=== PATIENT | female | born 1995 | race African-American/Black ===

== ENCOUNTER 2016-09-08 13:45 | Emergency (ER) | payer OTHER ==
[2016-09-08 14:51] LABS: BASOPHILS 0.3 %; BASOPHILS ABSOLUTE 0.02 10/3/uL (0.0-0.16); EOSINOPHILS 1.1 %; EOSINOPHILS ABSOLUTE 0.08 10/3/uL (0.0-0.53); ER CBC TAT 0 Hrs 11 Mins; HEMATOCRIT 33.7 % (36.0-48.0); HEMOGLOBIN 10.5 g/dL (12.0-16.0); IMMATURE GRANULOCYTES 0.3 %; IMMATURE GRANULOCYTES ABSOLUTE 0.02 10/3/uL (0.0-0.11); LYMPHOCYTES 20.9 %; LYMPHOCYTES ABSOLUTE 1.46 10/3/uL (0.67-4.30); MEAN CORPUS HGB CONC 31.2 g/dL (32.0-36.0); MEAN CORPUSCULAR HEMOGLOB 21.6 pg (26.0-34.0); MEAN CORPUSCULAR VOLUME 69.3 fL (80-100); MEAN PLATELET VOLUME 9.8 fL (9.2-13.0); MONOCYTES 6.6 %; MONOCYTES ABSOLUTE 0.46 10/3/uL (0.21-1.20); NEUTROPHILS 70.8 %; NEUTROPHILS ABSOLUTE 4.96 10/3/uL (2.02-8.40); PLATELET COUNT 395 10/3/uL (150-400); RBC DISTRIBUTION WIDTH 18.6 % (12.0-16.0); RED CELL COUNT 4.86 10/6/uL (4.0-5.6)
[2016-09-08 14:55] LABS: MANUAL DIFF NO %
[2016-09-08 15:05] LABS: A/G RATIO 0.7 (0.7-1.9); ALBUMIN 3.7 G/DL (3.5-5.0); ALKALINE PHOSPHATASE 81 U/L (45-117); BUN (BLOOD UREA NITROGEN) 9 MG/DL (6-23); CALCIUM, SERUM 9.3 MG/DL (8.5-10.4); CHLORIDE, SERUM 105 MMOL/L (96-112); CO2 (CARBON DIOXIDE) 27 MMOL/L (24-34); CREATININE 0.89 MG/DL (0.55-1.02); GFR AFRICAN AMERICAN 107 ML/MIN (>=60); GFR NON AFRICAN AMERICAN 92 ML/MIN (>=60); GLOBULIN 5.2 G/DL (2.5-4.1); GLUCOSE, SERUM 100 MG/DL (60-99); POTASSIUM, SERUM 3.3 MMOL/L (3.5-5.3); SGOT(AST) 21 U/L (5-40); SGPT(ALT) 28 U/L (5-65); SODIUM, SERUM 140 MMOL/L (135-148); TOTAL BILIRUBIN 0.7 MG/DL (0-1.2); TOTAL PROTEIN 8.9 G/DL (6.0-8.5)
[2016-09-08 15:16] LABS: PLATELET ESTIMATE ADQ (ADEQUATE)
[2016-09-08 15:19] LABS: ASCORBIC ACID (UR NOT ORDER) NEG (NEG); BILIRUBIN, URINE NEGATIVE (NEG); KETONE, URINE NEGATIVE (NEG); LEUKOCYTE ESTERASE(NOT OR LARGE (NEG); NITRITE (URINE) NEG (NEG); WBC (NOT ORDERED) (RFLEX) 3 (0-5)
[2016-09-08 15:20] LABS: ER URINALYSIS TAT 0 Hrs 39 Mins
[2016-09-08 15:24] LABS: ANISOCYTOSIS 1+ (5-10/OIF) (0-5/OIF); HYPOCHROMIA 1+ (3-10/OIF) (0-2/OIF)
== END 2016-09-08 18:37 | disposition home or self-care (01) ==
LOC: ER 13:45
PROVIDERS: Physician Assistant Medical
DX: R10.9 Unspecified abdominal pain (principal); R11.10 Vomiting, unspecified; E87.6 Hypokalemia
CPT/HCPCS: 74176; 80053; 81001; 83690; 84703; 85025; 87086; 96374; 96375; 99285; A9270-GY; J1885; J1980; J2405

== ENCOUNTER 2016-09-23 18:58 | Emergency (ER) | payer OTHER | END 2016-09-23 20:45 | disposition home or self-care (01) | LOC: ER 18:58 | DX: M54.6 Pain in thoracic spine (principal) | CPT/HCPCS: 99283; A9270-GY ==